=== PATIENT | female | born 1965 | race Caucasian/White ===

== ENCOUNTER 2023-02-11 18:54 | Emergency (ER) | payer OTHER, SELFPAY ==
[~2023-02-11 18:54] MED LIST: Iopamidol 370 76% 100 ML VIAL ONE
[2023-02-11 19:25] LABS: Bilirubin Negative (Negative); Blood, Urine Negative (Negative); Clarity Clear (Clear); Glucose, Urine (Dipstick) Negative (Negative); Ketone, Urine Negative (Negative); Leukocyte Negative (Negative); Nitrite Negative (Negative); Protein, Urine (Dipstick) Negative (Neg-Trace); Urobilinogen 0.2 mg/dL (Less than 2)
[2023-02-11] MEDS ORDERED: Morphine 4 MG/ML VIAL ONE (19:29)
[2023-02-11] MEDS ORDERED: Ondansetron PF 4 MG/2 ML Vial ONE ×2 (19:29→23:53)
[2023-02-11 19:30] LABS: #Basophils 0.1 thou/uL (0.0-0.2); #Eosinphils 0.1 thou/uL (0.0-0.7); #Lymphocytes 2.3 thou/uL (1.20-3.40); #Monocytes 0.7 thou/uL (0.11-0.59); #Neutrophils 5.5 thou/uL (1.40-6.50); %Basophils 0.6 % (0.0-1.0); %Eosinophils 1.7 % (0.0-10.0); %Lymphocytes 26.6 % (21.0-51.0); %Monocytes 8.4 % (0.0-10.0); %Neutrophils 62.7 % (42.0-75.0); Hemoglobin 12.9 g/dL (12.0-16.0); Mean Corpuscular HGB CONC 32.4 g/dL (32.0-36.0); Mean Corpuscular Hemoglobin 28.4 pg (27.0-31.0); Mean Corpuscular Volume 87.7 fl (78.0-98.0); Mean Platelet Volume 8.1 fL (7.4-10.4); Platelet Count 354 10x3/uL (130-400); Red Blood Cell (RBC) Count 4.52 mill/uL (4.20-5.40); White Blood Cell (WBC) Count 8.8 10x3/uL (4.8-10.8)
[2023-02-11 19:51] LABS: ALT (SGPT) 11 U/L (8-55); AST (SGOT) 14 U/L (5-34); Albumin 4.4 g/dL (3.5-5.0); Alkaline Phosphatase 77 U/L (40-110); Anion Gap 17 mmol/L (10-20); BUN (Urea Nitrogen) 9 mg/dL (9.8-20.1); Bilirubin, Total 0.4 mg/dL (0.2-1.2); Calc. Creatinine Clearance 0 mL/min (70-130); Calcium 9.6 mg/dL (7.8-10.44); Carbon Dioxide 24 mmol/L (22-29); Chloride 103 mmol/L (98-107); Estimated GFR 89; Glucose 91 mg/dL (70-105); Lipase 10 U/L (8-78); Magnesium 2.3 mg/dL (1.6-2.6); Potassium 3.4 mmol/L (3.5-5.1); Protein, Total 7.4 g/dL (6.0-8.3); Sodium 141 mmol/L (136-145)
[2023-02-11] MEDS ORDERED: Morphine 2 MG/ML VIAL ONE (22:05)
[2023-02-11] MEDS ORDERED: metroNIDAZOLE 500 MG/100 ML BAG ONE (22:19)
[2023-02-12] MEDS ORDERED: Sodium Chloride 0.9% 1,000 ML ONE (06:05)
[2023-02-12] MEDS ORDERED: Ondansetron PF 4 MG/2 ML Vial ONE (06:12)
== END 2023-02-12 06:37 | disposition short-term general hospital (02) ==
LOC: MADERS 18:54
DX: K80.10 Calculus of gallbladder with chronic cholecystitis without obstruction (principal)
CPT/HCPCS: 74177; 76705; 80053; 81003; 83605; 83690; 83735; 84484; 85025; 93005; 94760; 96365; 96368; 96375; 96376; J1956; J2270; J2272; J2405; J7050; Q9967